=== PATIENT | female | born 1990 | race Caucasian/White ===

== ENCOUNTER 2022-07-28 08:03 | Inpatient (IN) ==
[2022-07-28] MEDS ORDERED: LIDOCAINE 1% LOCAL 20 ML VIAL INFIL PRN (08:17)
[2022-07-28] MEDS ORDERED: OXYTOCIN 30 UNITS/500 ML BAG IV PRN ×3 (08:17→13:57)
[2022-07-28] MEDS: LACTATED RINGER'S 1,000 ML IV PRN ×2 (08:40→12:41)
--- NOTE | 2022-07-28 09:08 | History & Physical Report ---
Date of Service July 28, 2022 Assessment & Plan (1) Encounter for induction of labor: (2) History of third degree perineal laceration: Plan admit, iv, labs. begin pitocin induction and membranes ruptured. pt verified prior to proceeding that she does want to try vaginal delivery. plan warm compresses to perineum in 2nd stage. support given as pt tearful about delivery but is sure she wants to proceed. [facility] categ 1. Admission and Anticipated Discharge Date Admission Date: July 28, 2022 History of Present Illness Chief Complaint: induction Primary Care Provider: NO PCP 32yo at 39wks ega presents to L&D for above cc, with history of prior 3rd degree laceration prior . Patient was offered direct c/s to avoid laceration this but declines, wants to have attempt at vaginal delivery. Reconfirms that that is how she wants to proceed this am. Had velez ripening balloon and it fell out this am. No rom, no vb. +FM. no ctx. PNC c/b 1. prior 3rd degree laceration, traumatic for patient and has considered c/s but desires vaginal delivery and induction PNL rh pos, ri, gbs neg OBH: x 1 GYNH: nl paps Allergies Allergy/AdvReac Type Severity Reaction Status Date / Time No Known Allergies Allergy Verified 07/27/22 19:39 Home Medications Medication Instructions Recorded Confirmed Type prenat.vits,elisa,[id number] 1 tab PO DAILY 12/24/21 07/28/22 History docusate sodium 100 mg capsule 100 mg PO DAILY 07/27/22 07/28/22 History (Colace) Patient History Medical History Constipation Family History Father Hepatitis C Social History Smoking Status: Never smoker Second Hand Exposure: No; Hx Alcohol Use: No Hx Substance Use: No Preferred Language: Luxembourgish marital status: marital status details: Daphne (44) [phone] Current Living Situation: Spouse Current Living Situation Comment: lives with fob and son, no pets. current occupational status: employed current occupation: PHD student at [employer] Feels Safe at Home: Yes Review of Systems as per Subjective / HPI Physical Exam Constitutional: WD/WN, vitals as above Respiratory: normal respiratory effort, lungs clear to auscultation Cardiovascular: Rate/Rhythm: regular rate and regular rhythm Gastrointestinal (Abdomen): soft gravid nt efw 7-8# Musculoskeletal: no edema nontender calves Neurologic: grossly normal Psychiatric: A+Ox3, euthymic affect Genitourinary: Manual OB Exam: + cervical dilation 4 cm, + cervical effacement 80%, + station -2 and + amniotic fluid (arom) clear OB Exam Monitor Tracing: + external FHT monitor used, + external uterine monitor used (irreg), + category I and + normal FHT variability Results & Data ([facility]) Vital Signs (Past 12 Hours) Vital Signs Pulse BP 07/28/22 08:39 104 H 123/79 Coding Level of Care Code None Diagnoses Encounter for induction of labor Z34.90 History of third degree perineal laceration Z87.59
[2022-07-28 09:41] LABS: Hematocrit (blood only) 36.5 % (34.1-44.9); Hemoglobin 12.2 g/dl (12.0-16.0); Mean Corpuscular Hemoglobin 28.3 pg (25.0-34.0); Mean Corpuscular Hgb Conc 33.4 g/dL (32.0-36.0); Mean Corpuscular Volume 84.7 fL (80.0-100.0); Platelet Count 116 K/uL (130-400); RDW Coefficient of Variation 19.5 % (11.5-14.5); Red Blood Count 4.31 M/uL (3.93-5.22); White Blood Count 9.42 K/ul (4.8-10.8)
[2022-07-28] MEDS ORDERED: fentaNYL citrate 100 MCG/2 ML VIAL ONE (11:32)
[2022-07-28] MEDS ORDERED: ePHEDrine sulfate 50 MG/ML AMP ONE (11:32)
[2022-07-28] MEDS ORDERED: SODIUM CHLORIDE 0.9% INJ 10 ML VIAL ONE (11:32)
[2022-07-28] MEDS ORDERED: LIDOCAINE 2%/EPINEPHRINE 1:200,000 20 ML SDV ONE (11:33)
[2022-07-28] MEDS ORDERED: fentaNYL 2MCG/ML ROPIVACAINE 1.25MG/ML 100 ML BAG EPI ONE (11:33)
[2022-07-28] MEDS ORDERED: BUPIVACAINE 0.25% 30 ML VIAL ONE (11:33)
[2022-07-28] MEDS ORDERED: NALOXONE HCL 0.4 MG/1 ML VIAL/CARP IV PRN (12:03)
[2022-07-28] MEDS ORDERED: ePHEDrine sulfate 50 MG/ML AMP IV PRN (12:03)
[2022-07-28] MEDS ORDERED: NALOXONE HCL 1 MG in SODIUM CHLORIDE 0.9% 1000ML 1,000 ML IV PRN (12:03)
[2022-07-28] MEDS ORDERED: fentaNYL 2MCG/ML ROPIVACAINE 1.25MG/ML 100 ML BAG EPI PRN (12:03)
[2022-07-28] MEDS ORDERED: diphenhydrAMINE 50 MG/ML VIAL IV PRN (12:03)
[2022-07-28] MEDS ORDERED: NALBUPHINE HCL INJ 10 MG/ML AMP IV PRN (12:03)
--- NOTE | 2022-07-28 12:03 | Anesthesiology Consultation ---
Date of Service July 28, 2022 Assessment & Plan (1) Encounter for pre-operative examination: Chart Review Chart Review: Patient NOT seen in Pre Admission Testing and Acceptable Risk for Labor Epidural Consults Requested none History Height/Weight Height: 5 ft 5.75 in Weight: 92.079 kg Allergies Allergy/AdvReac Type Severity Reaction Status Date / Time No Known Allergies Allergy Verified 07/27/22 19:39 Medications Home Medications Medication Instructions Recorded Confirmed Last Taken prenat.vits,elisa,[id number] 1 tab PO DAILY 12/24/21 07/28/22 07/26/22 docusate sodium 100 mg capsule 100 mg PO DAILY 07/27/22 07/28/22 07/26/22 (Colace) Active Medications Generic Name Dose Route Start Last Admin Trade Name Freq PRN Reason Stop Dose Admin Oxytocin 30 units in 500 mls @ 7 mls/hr 07/28/22 08:17 07/28/22 11:18 Pitocin IV 07/30/22 08:16 0.42 units/hr .Q24H PRN 7 mls/hr Labor Induction/Augmentation Titration Protocol 0.42 UNITS/HR Lactated Ringer's 1,000 mls @ 125 mls/hr 07/28/22 08:17 07/28/22 11:32 Lr IV 07/30/22 08:16 999 mls/hr .Q8H PRN Infusion L&D Protocol Protocol Past Medical History Medical History Constipation Past Family History Family History Father Hepatitis C Social History Smoking Status: Never smoker Hx Alcohol Use: No Hx Substance Use: No substance use type: does not use Physical Exam Vital Signs Last Vital Signs Temp 98.6 F 07/28/22 09:06 Pulse 85 07/28/22 12:00 Resp 16 07/28/22 09:06 BP 114/55 L 07/28/22 11:48 Pulse Ox 96 07/28/22 12:00 Testing Laboratory Results 07/28/22 08:44 Blood Type O Positive 07/28/22 08:44 Antibody Screen NEGATIVE 07/28/22 08:44
[2022-07-28] MEDS ORDERED: HYDROCORTISONE ACETATE 25 MG SUPP PR PRN (13:57)
[2022-07-28] MEDS ORDERED: oxyCODONE/ACETAMINOPHEN 5mg/325mg TAB PO PRN (13:57)
[2022-07-28] MEDS ORDERED: BENZOCAINE 20% AER SPR 82.5 GM CAN EXT PRN (13:57)
[2022-07-28] MEDS ORDERED: DIPHTHERIA/TETANUS/PERTUSSIS 0.5 ML SYR/VIAL IM ONE (13:57)
[2022-07-28] MEDS ORDERED: OXYTOCIN 20 UNITS in LACTATED RINGER'S 1,000 ML IV SCH ×2 (14:00→14:30)
--- NOTE | 2022-07-28 14:06 | Delivery Summary ---
Vaginal Delivery Summary Date of Service July 28, 2022 Vaginal Delivery Summary and 1st Degree LAC The patient dilated to complete and pushed to deliver a viable male infant Apgars 9 and 9 via over small 1st degree perineal laceration. Cephalic delivered without control while getting gloves readied. Nuchal noted but delivered through. Shoulders and body delivered with ease. Nuchal x 2 reduced. Mouth and nose bulb suctioned. was vigorous and crying at . Cord was doubly clamped and cut at approximately 30 seconds of life and to maternal abdomen. Placenta delivered spontaneously and intact, three-vessel cord. Hemostasis achieved with dilute pitocin and uterine massage. Cervix and sulci intact. Small laceration repaired with 3-0 vicryl in typical fashion using 3-0 vicryl after 1% local lidocaine anesthesia. Several times showed partner the extent of the laceration and its superficial nature as patient anxious about any tear. Distance away from anal area, ie only small skin separation at perineum, demonstrated to her spouse--he nodded affirming this and relayed info to his in their [place] tongue. Offered to have patient see tear with mirror and she declined. EBL 300 cc. Mother and baby stable in recovery. [facility] Vaginal Delivery Charge Delivery Type Details: and 1st Degree LAC
--- NOTE | 2022-07-28 15:04 | Anesthesia Procedure Note ---
Date of Service July 28, 2022 Anesthesia Post Epidural Note Vital Signs Vital Signs: Temp Pulse Resp BP Pulse Ox 98.2 F 93 H 16 131/60 96 07/28/22 13:44 07/28/22 15:02 07/28/22 14:31 07/28/22 15:02 07/28/22 13:41 Notes Mental Status: alert / awake / arousable and participated in evaluation Nausea / Vomiting: adequately controlled Pain: adequately controlled Airway Patency, RR, SpO2: stable & adequate BP & HR: stable & adequate Hydration State: stable & adequate Neuraxial Anesthesia: was administered and sensory block is resolving Anesthetic Complications: no major complications apparent and Pt Satisfied with anesthetic care Epidural: Removed without complications and With tip intact
[2022-07-28] MEDS: IBUPROFEN 600 MG TAB PO PRN (21:57)
[2022-07-28] MEDS: ACETAMINOPHEN 325 MG TAB PO PRN (22:47)
[2022-07-29] MEDS: IBUPROFEN 600 MG TAB PO PRN ×3 (05:23→18:32)
[2022-07-29] MEDS: ACETAMINOPHEN 325 MG TAB PO PRN (06:22)
--- NOTE | 2022-07-29 06:51 | Obstetrical Progress Note ---
Date of Service <Faisal BlountStevan Wynn DO - Last Filed: 07/29/22 08:02> July 29, 2022 Assessment & Plan <Faisal BlountStevan Wynn DO - Last Filed: 07/29/22 08:02> (1) Encounter for care and examination after delivery: - Feels well today. Eating well, voiding well, ambulating well. - Pain well controlled with ibuprofen 600mg Q4H PRN and acetaminophen 650mg Q6H PRN - Routine care -- OOB, ambulation, diet progression as tolerated - After discharge will have 6 week follow-up with Dr. Sam sharma, Rh negative - Patient would like to stay one more day. D/C tomorrow if no issues (2) History of third degree perineal laceration: -Patient had a first degree laceration -No issues, continue routine care Day #:: 1 <Mikaela Vargas MD, FACOG - Last Filed: 07/29/22 08:06> (1) Encounter for care and examination after delivery: - Feels well today. Eating well, voiding well, ambulating well. - Pain well controlled with ibuprofen 600mg Q4H PRN and acetaminophen 650mg Q6H PRN - Routine care -- OOB, ambulation, diet progression as tolerated - After discharge will have 6 week follow-up with Dr. Sam sharma, Rh + - Patient would like to stay one more day. D/C tomorrow if no issues (2) History of third degree perineal laceration: Subjective <Faisal BlountStevan Wynn DO - Last Filed: 07/29/22 08:02> Ambulation: ambulating normally Voiding: no voiding problems Passing Gas:: Yes Diet Tolerance:: regular diet Lochia:: Moderate Feeding Type:: breast feeding Current Pain Level(1-10): 0 Patient is a 32 y/o female who is now PPD # 1 following spontaneous vaginal delivery at 39 weeks. Reports feeling well overall this morning. Mild abdominal cramping & 5-6/10 pain well managed on analgesics. Voiding well. Tolerating meals overnight and able to ambulate some. Able to pass gas and has not had a bowel movement. Has some persistent moderate lochia with some improvement this morning. Currently breast feeding. Review of Systems Denies fever, chills, sweats Denies shortness of breath, difficulty breathing, chest pain, palpitations, chest pressure. Denies breast pain. Denies dysuria. Denies headache or changes in vision. Physical Exam <Faisal Wynn DO - Last Filed: 07/29/22 08:02> General: Alert, oriented. No acute distress. Cardiac: Regular rate and rhythm, no murmurs/rubs/gallops. Respiratory: Clear to auscultation bilaterally a/p, no wheezes/rales/rhonchi. No increased work of breathing. Symmetrical chest rise. No respiratory distress. Abdomen: Soft, nontender, nondistended. Bowel sounds present. Uterus: Uterine fundus firm, palpable 3 cm below umbilicus. Lower Extremities: No lower extremity edema or swelling. No deep calf pain. Amy's negative bilaterally. Results & Data ([facility]) <Faisal Wynn DO - Last Filed: 07/29/22 08:02> Vital Signs (Past 12 Hours) Vital Signs Temp Pulse Resp BP O2 Del Method 07/29/22 03:00 36.7 C 84 16 109/73 Room Air 07/28/22 23:35 37.0 C 78 16 108/73 Room Air 07/28/22 21:00 37.1 C 80 16 108/69 Room Air <Mikaela Vargas MD, FACOG - Last Filed: 07/29/22 08:06> Co-Signing Physician Notes Resident Physician Supervision Note: I was present with Dr. Wynn during the history and exam. I discussed the case with the resident and agree with the findings and plan as documented in the note. Any exceptions or clarifications are listed here: doing well, eating, voiding, ambulating, some pain with cramps. abd soft ff 3down nt, ext nt calves. routine pp care. rh pos, ri. Documented By: Mikaela Vargas MD, FACOG Resident Activity Tracking <Faisal Wynn DO - Last Filed: 07/29/22 08:02> Resident Involvement: Resident Care Provided Care Provided: OB Delivery
[2022-07-29] MEDS: PRENATAL VITAMIN 1 TAB PO SCH (07:30)
[2022-07-29] MEDS: DOCUSATE SODIUM 100 MG CAP PO SCH ×3 (07:31→21:39)
[2022-07-30] MEDS: IBUPROFEN 600 MG TAB PO PRN ×2 (02:25→11:53)
--- NOTE | 2022-07-30 07:02 | Obstetrical Progress Note ---
Date of Service <Faisal BlountStevan Kingsley - Last Filed: 07/30/22 07:31> July 30, 2022 Assessment & Plan <Faisal Wynn - Last Filed: 07/30/22 07:31> (1) Encounter for care and examination after delivery: - Feels well today. Eating well, voiding well, ambulating well. - Pain well controlled with ibuprofen 600mg Q4H PRN and acetaminophen 650mg Q6H PRN - Routine care -- OOB, ambulation, diet progression as tolerated - After discharge will have 6 week follow-up with Dr. Vargas - Kyle immune, Rh negative - Plan to D/C later today (2) History of third degree perineal laceration: -Patient had a first degree laceration -No issues, continue routine care Day #:: 2 <Reggie Corbin MD - Last Filed: 07/31/22 11:47> (1) Encounter for care and examination after delivery: (2) History of third degree perineal laceration: Subjective <Faisal BlountStevan Wynn DO - Last Filed: 07/30/22 07:31> Ambulation: ambulating normally Voiding: no voiding problems Passing Gas:: Yes Diet Tolerance:: regular diet Lochia:: Small Feeding Type:: breast feeding Current Pain Level(1-10): 3 Patient is a 32 y/o female who is now PPD # 2 following spontaneous vaginal delivery at 39 weeks. Reports feeling well overall this morning. Mild abdominal cramping & 3/10 pain well managed on analgesics. Voiding well. Tolerating meals overnight and able to ambulate some. Able to pass gas and had a bowel movement. Has some persistent lochia with some improvement this morning. Currently breast feeding. She also c/o pain around her rectum that is a 5-6/10 pain well controlled with analgesics. Review of Systems Denies fever, chills, sweats Denies shortness of breath, difficulty breathing, chest pain, palpitations, chest pressure. Denies breast pain. Denies dysuria. Denies headache or changes in vision. Physical Exam <Faisal BlountStevan EllaDO petey - Last Filed: 07/30/22 07:31> General: Alert, oriented. No acute distress. Cardiac: Regular rate and rhythm, no murmurs/rubs/gallops. Respiratory: Clear to auscultation bilaterally a/p, no wheezes/rales/rhonchi. No increased work of breathing. Symmetrical chest rise. No respiratory distress. Abdomen: Soft, nontender, nondistended. Bowel sounds present. Uterus: Uterine fundus firm, palpable 4 cm below umbilicus. Lower Extremities: No lower extremity edema or swelling. No deep calf pain. Amy's negative bilaterally. Results & Data ([facility]) <Faisal Wynn DO - Last Filed: 07/30/22 07:31> Vital Signs (Past 12 Hours) Vital Signs Temp Pulse Resp BP Pulse Ox O2 Del Method 07/29/22 23:50 36.9 C 88 18 109/73 Room Air 07/29/22 20:04 37.2 C 88 16 114/79 98 Room Air <Reggie Corbin MD - Last Filed: 07/31/22 11:47> Co-Signing Physician Notes Patient seen and evaluated with resident and agree of the above findings and plan. Stable for discharge. Resident Activity Tracking <Faisal Wynn DO - Last Filed: 07/30/22 07:31> Resident Involvement: Resident Care Provided Care Provided: OB Delivery
[2022-07-30] MEDS: DOCUSATE SODIUM 100 MG CAP PO SCH (07:41)
[2022-07-30] MEDS: PRENATAL VITAMIN 1 TAB PO SCH (07:41)
== END 2022-07-30 13:22 | disposition home or self-care (01) | DRG 807 ==
LOC: 4S1 08:03 → 4E2 16:37
DX: O70.0 First degree perineal laceration during delivery; Z87.59 Personal history of other complications of pregnancy, childbirth and the puerperium; Z37.0 Single live birth; Z3A.39 39 weeks gestation of pregnancy; O69.81X0 Labor and delivery complicated by cord around neck, without compression, not applicable or unspecified